=== PATIENT | male | born 2000 | race Hispanic/Latino ===

== ENCOUNTER 2024-08-24 18:38 | Emergency (ER) | payer SELFPAY ==
--- NOTE | 2024-08-24 20:25 | RAD REPORT ---
EXAMINATION: ULTRASOUND DUPLEX OF SCROTUM AND TESTICLES CLINICAL INDICATION: Testicular pain TECHNIQUE: Duplex scan of the scrotal contents was performed including real-time color and spectral D oppler ultrasonography with arterial inflow and venous outflow. COMPARISON: No prior exam. FINDINGS: Right testicle measures 4 x 2.5 x 3.9 cm with a normal echotexture. Normal blood flow. Left testicle measures 3.8 x 2.5 x 3.5 cm with a normal echotexture. Normal blood flow. Right epididymis normal in size and echotexture. Normal blood flow. 4 mm spermatocele Left epididymis normal in size and echotexture. Normal blood flow Increased echogenicity is present within the left inguinal region IMPRESSION: Increased echogenicity within the left inguinal region may represent an inguinal hernia containing fa t.. If clinically indicated this could be confirmed with CT
[2024-08-24 20:37] LABS: Absolute Eosinophils 0.1 K/uL (0-0.5); Absolute Lymphocytes (CBC) 2.7 K/uL (0.7-4.9); Absolute Monocytes 0.4 K/uL (0.1-1.3); Absolute Neutrophil 3.9 K/uL (1.8-8.0); Basophils % 0.4 % (0-1.3); Eosinophils % 2.1 % (0-4.4); Hemoglobin 14.9 g/dL (13.6-17.9); Lymphocytes % 37.7 % (15.3-44.8); MCH 32.2 pg (27.0-35.0); MCHC 34.6 g/dL (32.0-36.0); MCV 92.9 fL (80-100); MPV 8.4 fL (7.6-11.3); Monocytes % 5.6 % (3.3-12.3); Neutrophils % 54.2 % (41.7-73.7); Platelets 215 thou/uL (152-406); RBC Red Blood Cell Count 4.63 M/uL (4.33-5.43)
[2024-08-24 20:55] LABS: Albumin 3.7 g/dL (3.4-5.0); Anion Gap 8.1 mEq/L (5.0-15.0); Bilirubin Total 0.7 mg/dL (0.2-1.0); Globulin 3.7 g/dL (2.3-3.5); Potassium 4.1 mEq/L (3.5-5.1); Protein, Total 7.4 g/dL (6.4-8.2)
--- NOTE | 2024-08-24 21:54 | RAD REPORT ---
EXAMINATION: CT ABDOMEN AND PELVIS WITH CONTRAST CLINICAL INDICATION: Abdominal pain TECHNIQUE: CT abdomen and pelvis was performed, after the administration of 100 cc Isovue-300.. Sagit iftikhar and coronal reconstructions were obtained. One or more of the following dose reduction techniques were used: Automated exposure control, adjustment of the mA and kV according to patient si ze, and iterative reconstruction. Unless otherwise specified, incidental findings do not require dedicated imaging follow-up. [id number]. Oral contrast was not given which limits evaluation of bowel and appendix. COMPARISON: .Scrotal ultrasound August 24, 2024 FINDINGS: Liver, spleen, pancreas, adrenals and kidneys appear unremarkable No evidence of diverticulitis. Normal appendix. Tiny umbilical hernia. An inguinal hernia not seen : IMPRESSION: No acute abnormality displayed
[2024-08-24 22:05] LABS: Specific Gravity 1.024 (1.005-1.030); Urine Bilirubin NEGATIVE (Negative); Urine Blood Negative (Negative); Urine Clarity Clear (Clear); Urine Color Light-Yellow (Yellow); Urine Glucose NEGATIVE (Negative); Urine Ketones NEGATIVE (Negative); Urine Microscopic Reflex YN NO UMIC; Urine Nitrite NEGATIVE (Negative); Urine Protein NEGATIVE (Negative); Urine Urobilinogen Normal (Normal)
--- NOTE | 2024-08-24 22:38 | ER ---
Nurse's Notes [facility] Name: Simeon Sewell Age: 23 yrs Sex: Male : 2000 Arrival Date: 08/24/2024 Time: 18:38 Bed Treatment Private MD: Diagnosis: Left inguinal pain Presentation: 08/24 19:05 Chief complaint: Patient states: left testicular pain radiating up to groin since 0900 iw today , denies pain with urination, pain worsens with movement. Coronavirus screen: At this time, the client does not indicate any symptoms associated with coronavirus-19. Ebola Screen: No symptoms or risks identified at this time. Initial Sepsis Screen: Does the patient meet any 2 criteria? No. Patient's initial sepsis screen is negative. Does the patient have a suspected source of infection? No. Patient's initial sepsis screen is negative. Risk Assessment: Do you want to hurt yourself or someone else? Patient reports no desire to harm self or others. Onset of symptoms was August 24, 2024. 19:05 Method Of Arrival: Ambulatory iw 19:05 Acuity: LINWOOD 3 iw Historical: - Allergies: 19:07 No Known Allergies; iw - Home Meds: 19:07 None [Active]; iw - PMHx: 19:07 None; iw - PSHx: 19:07 None; iw - Immunization history:: Adult Immunizations not up to date. - Infectious Disease History:: Denies. - Social history:: Smoking status: Reported history of juuling and/or vaping. Screenin:46 [facility] ED Fall Risk Assessment (Adult) History of falling in the last 3 months, jb4 including since admission No falls in past 3 months (0 pts) Confusion or Disorientation No (0 pts) Intoxicated or Sedated No (0 pts) Impaired Gait No (0 pts) Mobility Assist Device Used No (0 pt) Altered Elimination No (0 pt) Score/Fall Risk Level 0 - 2 = Low Risk Oriented to surroundings, Maintained a safe environment. Abuse screen: Denies threats or abuse. Nutritional screening: No deficits noted. Tuberculosis screening: No symptoms or risk factors identified. Assessment: 19:45 General: Appears in no apparent distress. comfortable, Behavior is calm, cooperative, jb4 appropriate for age. Pain: Complains of pain in groin Pain does not radiate. Pain currently is 5 out of 10 on a pain scale. Neuro: Level of Consciousness is awake, alert, obeys commands, Oriented to person, place, time, situation. Cardiovascular: Patient's skin is warm and dry. Respiratory: Airway is patent Respiratory effort is even, unlabored, Respiratory pattern is regular, symmetrical. Derm: Skin is intact, Skin is pink, warm \T\ dry. Musculoskeletal: Circulation, motion, and sensation intact. Range of motion: intact in all extremities. 20:50 Reassessment: Patient appears in no apparent distress at this time. Patient and/or jb4 family updated on plan of care and expected duration. Pain level reassessed. Patient is alert, oriented x 3, equal unlabored respirations, skin warm/dry/pink. 22:00 Reassessment: Patient appears in no apparent distress at this time. Patient and/or jb4 family updated on plan of care and expected duration. Pain level reassessed. Patient is alert, oriented x 3, equal unlabored respirations, skin warm/dry/pink. Vital Signs: 19:05 BP 135 / 75; Pulse 63; Resp 16; Temp 97.4; Pulse Ox 100% on R/A; iw 19:08 Weight 72.57 kg; Height 5 ft. 4 in. ; iw 19:08 Body Mass Index 27.46 (72.57 kg, 162.56 cm) iw ED Course: 18:42 Patient arrived in ED. im 19:06 Jose Elias Pratt MD is Attending Physician. sp3 19:07 Triage completed. iw 19:07 Arm band placed on. iw 19:41 Scrotum Testicles US In Process Unspecified. EDMS 20:29 CBC with Diff Sent. jb4 20:29 CMP Sent. jb4 20:49 Lamin Mckeon, LORRAINE is Primary Nurse. jb4 21:37 CT Abd/Pelvis - IV Contrast Only In Process Unspecified. EDMS 21:58 Urinalysis w/ reflexes Sent. oe 22:46 Patient has correct armband on for positive identification. Bed in low position. Call jb4 light in reach. Side rails up X 1. Provided Education on: discharge instructions.. 22:46 No provider procedures requiring assistance completed. Patient did not have IV access jb4 during this emergency room visit. Administered Medications: No medications were administered Medication: 22:46 VIS not applicable for this client. jb4 Outcome: 22:37 Discharge ordered by . sp3 22:46 Discharged to home ambulatory, jb4 22:46 Condition: stable 22:46 Discharge instructions given to patient, Instructed on discharge instructions, follow up and referral plans. Demonstrated understanding of instructions, follow-up care, 22:47 Patient left the ED. jb4 Signatures: Dispatcher [employer] Kae Contreras RN RN iw Lamin Mckeon RN RN jb4 Dylan Medrano Setul, MD MD sp3 Demetria Esquivel
--- NOTE | 2024-08-24 22:38 | EDPHYS ---
Physician Documentation [facility] Name: Simeon Sewell Age: 23 yrs Sex: Male : 2000 Arrival Date: 08/24/2024 Time: 18:38 Bed Treatment Private MD: ED Physician Jose Elias Pratt HPI: 08/24 20:30 This 23 yrs old Male presents to ER via Ambulatory with complaints of sp3 Testicular Pain, Groin Pain. 20:30 23-year-old male with no significant past medical history presents with left testicular sp3 pain extending into the left inguinal groin and left lower quadrant of the abdomen. He denies any dysuria, visualized hematuria, trauma, prior history of any testicular abnormality, change in testicular lie, or any other symptoms on ROS at this time. She also denies fever, chest pain, shortness of breath, abdominal pain, back pain, vomiting, diarrhea or any other signs or symptoms at this time.. Historical: - Allergies: 19:07 No Known Allergies; iw - Home Meds: 19:07 None [Active]; iw - PMHx: 19:07 None; iw - PSHx: 19:07 None; iw - Immunization history:: Adult Immunizations not up to date. - Infectious Disease History:: Denies. - Social history:: Smoking status: Reported history of juuling and/or vaping. ROS: 20:30 Constitutional: Negative for fever, chills, and weight loss, Eyes: Negative for injury, sp3 pain, redness, and discharge, ENT: Negative for injury, pain, and discharge, Neck: Negative for injury, pain, and swelling, Cardiovascular: Negative for chest pain, palpitations, and edema, Respiratory: Negative for shortness of breath, cough, wheezing, and pleuritic chest pain, Back: Negative for injury and pain, MS/Extremity: Negative for injury and deformity, Skin: Negative for injury, rash, and discoloration, Neuro: Negative for headache, weakness, numbness, tingling, and seizure, Psych: Negative for depression, anxiety, suicide ideation, homicidal ideation, and hallucinations, Allergy/Immunology: Negative for hives, rash, and allergies, Endocrine: Negative for neck swelling, polydipsia, polyuria, polyphagia, and marked weight changes, 20:30 All other systems are negative, Exam: 20:31 Constitutional: This is a well developed, well nourished patient who is awake, alert, sp3 and in no acute distress. Head/Face: Normocephalic, atraumatic. Eyes: Pupils equal round and reactive to light, extra-ocular motions intact. Lids and lashes normal. Conjunctiva and sclera are non-icteric and not injected. Cornea within normal limits. Periorbital areas with no swelling, redness, or edema. Neck: Trachea midline, no thyromegaly or masses palpated, and no cervical lymphadenopathy. Supple, full range of motion without nuchal rigidity, or vertebral point tenderness. No Meningismus. Chest/axilla: Normal chest wall appearance and motion. Nontender with no deformity. No lesions are appreciated. Cardiovascular: Regular rate and rhythm with a normal S1 and S2. No gallops, murmurs, or rubs. Normal PMI, no JVD. No pulse deficits. Respiratory: Lungs have equal breath sounds bilaterally, clear to auscultation and percussion. No rales, rhonchi or wheezes noted. No increased work of breathing, no retractions or nasal flaring. Back: No spinal tenderness. No costovertebral tenderness. Full range of motion. Skin: Warm, dry with normal turgor. Normal color with no rashes, no lesions, and no evidence of cellulitis. 20:31 Abdomen/GI: Mild pain to palpation in the left lower quadrant and left inguinal area. Normal left testicular exam., Vital Signs: 19:05 BP 135 / 75; Pulse 63; Resp 16; Temp 97.4; Pulse Ox 100% on R/A; iw 19:08 Weight 72.57 kg; Height 5 ft. 4 in. ; iw 19:08 Body Mass Index 27.46 (72.57 kg, 162.56 cm) iw MDM: 19:07 Medical Screening Exam initiated sp3 20:31 Data reviewed: vital signs, nurses notes, lab test result(s), radiologic studies. ED sp3 course: 23-year-old male with testicular and inguinal pain in the left lower quadrant. Differential diagnosis includes epididymitis, testicular torsion, diverticulitis, inguinal hernia, musculoskeletal pain, among others. Ultrasound of the testicle is normal. Possible hernia seen in the inguinal region on ultrasound and CT has also been ordered. Labs pending. Patient no acute distress with normal vital signs. If workup negative we will safely discharge patient home with PCP follow-up at this time.. 22:35 ED course: Full workup negative. We will discharge patient home at this time.. sp3 08/24 19:08 Order name: CBC with Diff; Complete Time: 21:57 sp3 08/24 19:08 Order name: CMP; Complete Time: 21:57 sp3 08/24 19:08 Order name: Urinalysis w/ reflexes sp3 08/24 19:08 Order name: Scrotum Testicles US; Complete Time: 20:29 sp3 08/24 20:29 Order name: CT Abd/Pelvis - IV Contrast Only; Complete Time: 21:57 sp3 08/24 19:08 Order name: IV Saline Lock; Complete Time: 20:29 sp3 08/24 19:08 Order name: Labs collected and sent; Complete Time: 20:29 sp3 Administered Medications: No medications were administered Disposition Summary: 08/24/24 22:37 Discharge Ordered Notes: Location: Home sp3 Condition: Stable sp3 Diagnosis - Left inguinal pain sp3 Followup: sp3 - With: Private Physician - When: Upon discharge from the Emergency Department - Reason: Continuance of care Discharge Instructions: - Discharge Summary Sheet sp3 - Abdominal Pain, Adult sp3 Forms: - Medication Reconciliation Form sp3 - Antibiotic Education sp3 - Prescription Opioid Use sp3 - Patient Portal Instructions sp3 - Leadership Thank You Letter sp3 Signatures: Dispatcher [employer] Kae Contreras RN RN Jose Elias Delacruz MD MD sp3 Corrections: (The following items were deleted from the chart) 20:30 20:30 Abdomen Pelvis W Con+CT.RAD.BRZ ordered. JAMIL NEGRON
[2024-08-24 22:54] VITALS: BP 135/75; TEMP 97.4; O2SAT 100
== END 2024-08-24 22:47 | disposition home or self-care (01) ==
LOC: ER 18:38
DX: R10.32 Left lower quadrant pain (principal)
CPT/HCPCS: 36415; 74177; 76870; 80053; 81003; 85025; 99283; Q9967